=== PATIENT | female | born 1990 ===

== ENCOUNTER 2017-09-07 02:44 | Emergency (ER) | payer SELFPAY ==
[2017-09-07 02:52] VITALS: BMI 33.5
[2017-09-07 03:02] VITALS: TEMP 98.3; O2SAT 99
[2017-09-07] MEDS ORDERED: DiphenhydrAMINE 12.5 mg/5 ml LIQ UD (5 ml) PO STA (03:17)
--- NOTE | 2017-09-07 03:20 | ED PDOC ---
Arrival/HPI - General Chief Complaint: Abnormal Skin Integrity Time Seen by Provider: 09/07/17 03:03 Historian: Patient - History of Present Illness Narrative History of Present Illness (Text): 09/07/17 03:17 26 year old female, whose past medical history includes epilepsy on Keppra and Lamictal and denies any known allergies, presents to the emergency department complaining of hives that began 4 days ago. Patient reports the hives began on her left forearm and began to spread bilaterally to her upper and lower extremities. Patient denies any new soaps, detergent, clothing, lotions, perfumes, or any other possible objects. Patient reports the hives as itchy, but denies any fever, shortness of breath, mouth swelling, or any other complaints. Time/Duration: Other (4 days ) Symptom Onset: Gradual Symptom Course: Unchanged, Worsening Activities at Onset: Light Context: Home Past Medical History - Provider Review Nursing Documentation Reviewed: Yes - Cardiac Hx Cardiac Disorders: No - Pulmonary Hx Respiratory Disorders: No - Neurological Hx Seizures: Yes - HEENT Hx HEENT Disorder: No - Renal Hx Renal Disorder: No - Endocrine/Metabolic Hx Endocrine Disorders: No - Hematological/Oncological Hx Blood Disorders: No - Integumentary Hx Dermatological Disorder: No - Musculoskeletal/Rheumatological Hx Musculoskeletal Disorders: No - Gastrointestinal Hx Gastrointestinal Disorders: No - Genitourinary/Gynecological Hx Genitourinary Disorders: No - Psychiatric Hx Depression: No Hx Emotional Abuse: No Hx Physical Abuse: No Hx Substance Use: No - Anesthesia Hx Anesthesia: No - Suicidal Assessment Feels Threatened In Home Enviroment: No Family/Social History - Physician Review Nursing Documentation Reviewed: Yes Family/Social History: No Known Family HX Smoking Status: Never Smoked Hx Alcohol Use: No Hx Substance Use: No Hx Substance Use Treatment: No Allergies/Home Meds Allergies/Adverse Reactions: Allergies No Known Allergies Allergy (Verified 09/07/17 02:52) Home Medications: Home Meds Medication Instructions Recorded Confirmed Folic Acid [Folic Acid] 1 mg PO DAILY 09/07/17 09/07/17 Levetiracetam [Keppra] 500 mg PO BID 09/07/17 09/07/17 lamoTRIgine [Lamictal] 100 mg PO BID 09/07/17 09/07/17 Review of Systems - Physician Review All systems were reviewed & negative as marked: Yes - Review of Systems Constitutional: absent: Fevers ENT: absent: Other (mouth swelling) Respiratory: absent: SOB Skin: Other ((+) Hives (+) Itchiness) Physical Exam - Physical Exam Narrative Physical Exam (Text): Constitutional: No acute distress. Head: Normocephalic. Atraumatic. Eyes: PERRL. ENT: Moist mucous membranes. No tongue or lip swelling. No Strider. Neck: Supple. Cardiovascular: Regular rate. Chest: No tenderness. Respiratory: Clear to auscultation bilaterally. No wheezing. GI: Soft. Nontender. Nondistended. Back: No CVA tenderness. Musculoskeletal: No tenderness or swelling of extremities. Skin: Scattered hives bilateral on upper extremity spreading to the lower extremity. No tenderness. Blanching. Neurologic: Alert, no focal deficit. Vital Signs Reviewed: Yes Vital Signs Temp Pulse Resp BP Pulse Ox 09/07/17 04:32 84 18 122/86 99 09/07/17 02:59 98.3 F 95 H 16 123/93 H 99 Temperature: Afebrile Blood Pressure: Normal Pulse: Regular Respiratory Rate: Normal Appearance: Positive for: Well-Appearing, Non-Toxic, Comfortable Pain Distress: None Mental Status: Positive for: Alert and Oriented X 3 Medical Decision Making ED Course and Treatment: 09/07/17 03:17 Plan: -- Benadryl -- Pepcid -- Reassess and disposition Progress Notes: Patient felt well. Discharged home, instructed f/u with Allergy/Derm, return to ED for any dyspnea, swelling, or any other problem. - Medication Orders Current Medication Orders: Discontinued Medications Diphenhydramine HCl (Benadryl) 25 mg PO STAT STA Stop: 09/07/17 03:18 Last Admin: 09/07/17 03:32 Dose: 25 mg Famotidine (Pepcid) 20 mg PO STAT STA Stop: 09/07/17 03:18 Last Admin: 09/07/17 03:32 Dose: 20 mg - Scribe Statement The provider has reviewed the documentation as recorded by the Lisset Butler Provider Scribe Attestation: All medical record entries made by the Lisset were at my direction and personally dictated by me. I have reviewed the chart and agree that the record accurately reflects my personal performance of the history, physical exam, medical decision making, and the department course for this patient. I have also personally directed, reviewed, and agree with the discharge instructions and disposition. Disposition/Present on Arrival - Present on Arrival Any Indicators Present on Arrival: No History of DVT/PE: No History of Uncontrolled Diabetes: No Urinary Catheter: No History of Decub. Ulcer: No History Surgical Site Infection Following: None - Disposition Have Diagnosis and Disposition been Completed?: Yes Diagnosis: Urticaria Disposition: HOME/ ROUTINE Disposition Time: 04:24 Patient Plan: Discharge Condition: STABLE Discharge Instructions (ExitCare): Urticaria (ED) Prescriptions: DiphenhydrAMINE [Benadryl] 2 cap PO Q8 #25 cap Famotidine [Pepcid] 1 tab PO BID #14 tab Referrals: [facility] [Outside] - Follow up with primary Forms: [facility] (Georgian)
[2017-09-07 04:32] VITALS: BP 122/86; PULSE 84; RESP 18
== END 2017-09-07 04:32 | disposition home or self-care (01) ==
LOC: ED 02:44
DX: L50.9 Urticaria, unspecified (principal)